=== PATIENT | male | born 1970 | race Caucasian/White ===

== ENCOUNTER 2024-08-24 16:43 | Emergency (ER) | payer MEDICAID ==
[~2024-08-24] VITALS: Ht 175.3 cm; Wt 125.2 kg
[2024-08-24 16:59] VITALS: BP 126/84; PULSE 95; RESP 15; TEMP 98.8; O2SAT 97
[2024-08-24 17:12] VITALS: O2SAT 97
[2024-08-24 17:44] LABS: BASOPHILS # (AUTO) 0.1 K/uL (0.00-0.22); BASOPHILS % (AUTO) 0.5 % (0.0-2.0); EOSINOPHILS % (AUTO) 0.1 % (0.0-4.0); HEMATOCRIT 41.8 % (36-52); HEMOGLOBIN 14.4 g/dL (12.0-18.0); LYMPHOCYTES # (AUTO) 0.8 K/uL (2.0-11.5); LYMPHOCYTES % (AUTO) 7.3 % (20.5-51.1); MEAN CORPUSCULAR HEMOGLOBIN 28 pg (27-31); MEAN CORPUSCULAR HGB CONC 34 g/dL (33-37); MEAN CORPUSCULAR VOLUME 82.7 fL (80-94); MONOCYTES # (AUTO) 0.5 K/uL (0.8-1.0); MONOCYTES % (AUTO) 4.1 % (1.7-9.3); NEUTROPHILS # (AUTO) 9.8 K/uL (1.8-7.7); PLATELET COUNT (AUTO) 289 K/uL (140-450); RED BLOOD CELL COUNT(AUTO) 5.05 MIL/uL (4.20-6.10); RED CELL DISTRIBUTION WIDTH 13.6 % (11.6-13.7); WHITE BLOOD COUNT (AUTO) 11.1 K/uL (4.8-10.8)
[2024-08-24] MEDS: MECLIZINE 25 MG TAB PO ONE (17:47)
[2024-08-24 17:54] LABS: ANION GAP 11.9 (8-16); CARBON DIOXIDE 28.1 mmol/L (21-32); CREATININE 0.8 mg/dL (0.6-1.3)
[2024-08-24] MEDS ORDERED: MECL-303 PO (18:09)
[2024-08-24] MEDS: diazePAM 5 MG TAB PO ONE (19:14)
[2024-08-24 20:01] VITALS: O2SAT 99
[2024-08-24] MEDS ORDERED: DIAZ5TAB6 PO (20:16)
[2024-08-24 20:30] VITALS: BP 160/83; PULSE 66; RESP 15; TEMP 98.8; O2SAT 99
== END 2024-08-24 20:30 | disposition home or self-care (01) ==
LOC: MED 16:43 → EDBD 16:43 → MED 20:30
DX: R42 Dizziness and giddiness (principal); Z90.49 Acquired absence of other specified parts of digestive tract
CPT/HCPCS: 36415; 80048; 82948; 84484; 85025; 93005; 99285; J8597